=== PATIENT | male | born 2005 | race Asian ===

== ENCOUNTER 2024-10-07 06:02 | Day surgery (SDC) | payer BC ==
[2024-10-06 11:52] VITALS: BMI 21.2
[2024-10-07] MEDS ORDERED: PROPOFOL 20 ML ONE (07:03)
[2024-10-07] MEDS ORDERED: fentaNYL PF 100 MCG/2 ML SYRINGE ONE (07:03)
[2024-10-07] MEDS ORDERED: Lidocaine 1% PF 5 ML VIAL ONE (07:04)
[2024-10-07] MEDS ORDERED: Ondansetron PF 4 MG/2 ML Vial ONE (07:04)
[2024-10-07] MEDS ORDERED: Dexamethasone 20 MG/5 ML VIAL ONE (07:04)
[2024-10-07] MEDS ORDERED: fentaNYL 50 mcg/mL 1 mL Vial ONE (07:09)
[2024-10-07] MEDS ORDERED: Midazolam HCl 2 mg/2 ml Vial ONE (07:10)
[2024-10-07] MEDS ORDERED: CEFAZOLIN 2 GM VIAL ONE (07:10)
[2024-10-07] MEDS ORDERED: Bupivacaine HCl 0.5%/Epinephrine 1:200,000/PF 30 ml Vial ONE (07:20)
[2024-10-07] MEDS ORDERED: Ropivacaine 0.5% HCl/PF (150 MG/30 ML VIAL) ONE (08:26)
[2024-10-07] MEDS ORDERED: PHENYLEPHRINE-NS 100 MCG/ML 10 ML SYRINGE ONE (08:39)
[2024-10-07] MEDS ORDERED: Ketorolac Tromethamine 30 MG (1 mL) VIAL ONE (08:39)
== END 2024-10-07 10:48 | disposition home or self-care (01) ==
LOC: SDC 06:02
PROVIDERS: ATTEND Orthopaedic Surgery
PROC: 3E0T3BZ Introduction of Anesthetic Agent into Peripheral Nerves and Plexi, Percutaneous Approach (ICD-10-PCS; principal; 2024-10-07)
PROC: 0PSK04Z Reposition Right Ulna with Internal Fixation Device, Open Approach (ICD-10-PCS; principal; 2024-10-07)
DX: S52.021A Displaced fracture of olecranon process without intraarticular extension of right ulna, initial encounter for closed fracture (principal); W19.XXXA Unspecified fall, initial encounter
CPT/HCPCS: J1100; J1885; J2250; J2405; J2704; J2795; J3010